=== PATIENT | female | born 1960 | race Caucasian/White ===

== ENCOUNTER 2021-05-25 15:57 | Emergency (ER) | payer SELFPAY ==
--- NOTE | 2021-05-25 16:31 | PHYS DOC ---
Adult General Chief Complaint Chief Complaint: CPR/FULL ARREST HPI HPI Patient is a 60-year-old female presenting via EMS for CODE BLUE. Patient is a victim of out of hospital arrest. She was apparently having sexual intercourse and doing other undisclosed activities with male partner when she apparently went to the bathroom and after 15 minutes was found on the ground foaming at the mouth. EMS was subsequently called and arrived to the house at 1515 hrs. Immediately when EMS arrived to scene, male individual fled and so no additional information was obtained. Patient was triaged as CODE BLUE after [id number] glucose was 222 and patient none responsive to Narcan and appropriate ACLS was started at 1523 hrs. Patient was found to be in asystole, an i-gel was inserted, Toi machine placed on chest for compressions, and left tibial IO inserted. Patient's rhythms were initially asystole, then PEA, and after several rounds x1 episode of ventricular tachycardia was identified and shocked with PEA ongoing up until ER arrival. Patient had received 5 doses of epinephrine IO prior to arrival. Review of Systems Review of Systems Unable to assess due to ongoing cardiac arrest on arrival Physical Exam Physical Exam Constitutional: Patient ill-appearing with ongoing cardiac resuscitation on arrival, age- appropriate HEENT: Head: Normocephalic and atraumatic. TMs clear, no hemotympanum Conjunctivae of right injected, EOM are normal. Pupils are equal, round, and nonreactive to light. Oropharynx with i-gel in appropriate position bagging easily No hematomas or lacerations or abrasions to face or scalp OP clear, no blood, no malocclusion, dentition intact Nares clear, no nasal septal hematoma Midface stable Neck: C-spine midline nontender, no step-offs Cardiovascular: PEA initial rhythm without pulse, organized cardiac rhythm per bedside ultrasound Pulmonary/Chest: Mechanical breath sounds, easily bagging via BVM, bilateral chest rise with rhonchi present to bilateral lungs globally, no spontaneous breaths Abdominal: Soft. Bowel sounds are normal. Pt exhibits no distension. There is no tenderness. Musculoskeletal: No bony tenderness to extremities, no deformities, full ROM extremities Chest wall stable Pelvis stable and non-tender No vertebral TTP and spine without stepoffs Left tibial IO in satisfactory position Neurological: No purposeful movements on arrival No spontaneous movements of extremities Fixed pupils bilaterally No gag or ocular reflex Downgoing toes bilaterally with stimulation Skin: Skin is warm and dry. No abrasions, no lacerations Psychiatric: Unable to fully assess Current Patient Data Lab Results Current Medications Medications (Trade) Dose Ordered Sig/Tu Route PRN Reason Start Time Stop Time Status Last Admin Dose Admin Amiodarone HCl (Cordarone) 300 mg STK-MED ONCE IVP 05/25/21 17:00 05/25/21 21:22 DC Calcium Chloride (Calcium Chloride) 1,000 mg STK-MED ONCE IV 05/25/21 17:00 05/25/21 21:22 DC Epinephrine HCl (EPINEPHrine SYRINGE) 5 mg STK-MED ONCE .ROUTE 05/25/21 17:00 05/25/21 21:22 DC Sodium Bicarbonate (Sodium Bicarb Adult 8.4% Syr) 50 meq STK-MED ONCE .ROUTE 05/25/21 17:00 05/25/21 21:22 DC EKG EKG [] Radiology/Procedures Radiology/Procedures [] Heart Score C/O Chest Pain: N/A Risk Factors: Risk Factors: DM, Current or recent (<one month) smoker, HTN, HLP, family history of CAD, obesity. Risk Scores: Risk Factors: DM, Current or recent (<one month) smoker, HTN, HLP, family history of CAD, obesity. Course & Med Decision Making Course & Med Decision Making Ongoing cardiac arrest at time of arrival Little is known about patient regarding past medical history. Witnessed arrest with witnessed fling seen immediately on EMS arrival It is unknown if patient was performing/engaging in illegal activity and bathroom or prior to being found on bathroom floor foaming at mouth Regardless, extensive efforts made in ER following appropriate ATLS protocol. PEA on arrival, had x2 episodes of V. tach that were nonresponsive to electric d efib Additional access obtained via right IO. Definitive airway via intubation performed without issues during resuscitation efforts. Aggressive resuscitation efforts were made. No family or next of kin available. After approximately 1 hour of total downtime and no obvious neurologic or other signs of life, decision made to withdraw care I performed comprehensive evaluation confirming no response to verbal and/or painful stimuli, no lung and/or cardiac sounds appreciated on 2 minutes of auscultation. No ocular reflex to physical stimulation or light. No cardiac activity when performing bedside ultrasound via parasternal and subxiphoid views. Patient pronounced and appropriate authorities notified. Please defer to charge nurse documentation regarding specifics of cardiac arrest and timing of pronouncement of . Critical Care Time This patient required critical care. Due to the fact that the patient required a significant amount of one on one physician - patient contact time, ordering and review of studies, arranging urgent treatment with development of a management plan, evaluation of patients response to treatment with frequent reassessments, and discussions with other providers this patient required 40 minutes of critical care time. Critical care time was indicated due to the inherent instability and/or potential for instability in this patient. The critical care time that is allocated to this patient is above and beyond any time spent on any other billable procedures performed on this patient. Dragon Disclaimer Dragon Disclaimer This electronic medical record was generated, in whole or in part, using a voice recognition dictation system. Ultrasound Progress Due to this patient's reported HPI, a focused bedside sonography for cardiac function was indicated Bedside ultrasonography was utilized to complete this procedure Cardiac evaluation involved both the parasternal and subxiphoid approaches to visualize the heart and pericardial sac. There was no evidence of gross wall motion movement, effusions or cardiac activity Intubation Progress The patient required endotracheal intubation due to need for definitive airway given ongoing cardiac arrest Consent was implied due to medical necessity/emergent need for advanced airway The patient was given no sedatives and/or paralytics Once patient was adequately sedated and paralyzed, a 3.0 glidoscope was used to directly visualize the cords Using this direct visualization, a 7.5 endotracheal tube was then passed easily through the cords The tube was inserted at 22 centimeters at the lip There is excellent color change on end-tidal CO2 monitor. Patient was easily and adequately ventilated. There was excellent breath sounds bilaterally with no breath sounds heard over the epigastrium. The tube was secured in standard fashion. The patient tolerated procedure well with no observed nor reported complications Post intubation chest x-ray demonstrates excellent endotracheal tube placement Departure Departure: Impression: Primary Impression: Cardiac arrest Disposition: 20 Condition: Referrals: PCP,NO (PCP) LILIBETH DYER DO May 25, 2021 16:31
[2021-05-25] MEDS ORDERED: AMIODARONE 150 MG/3 ML VIAL IVP ONE (17:00)
[2021-05-25] MEDS ORDERED: CALCIUM CHLORIDE 1,000 MG/10 ML VIAL IV ONE (17:00)
[2021-05-25] MEDS ORDERED: EPINEPHrine SYRINGE 1 MG/10 ML SYRINGE. ONE (17:00)
[2021-05-25] MEDS ORDERED: SODIUM BICARB ADULT 8.4% 50 MEQ/50 ML DISP.SYRIN. ONE (17:00)
[2021-05-25 17:09] LABS: BASO % 0 % (0-3); EOS # 0.1 x10^3/uL (0.0-0.7); EOS % 1 % (0-3); HEMATOCRIT 43.8 % (36.0-47.0); HEMOGLOBIN 13.5 g/dL (12.0-15.5); LYMPH # 6.1 x10^3/uL (1.0-4.8); LYMPH % 54 % (24-48); MEAN CORPUSCULAR HEMOGLOBIN 31 pg (25-35); MEAN CORPUSCULAR HGB CONC 31 g/dL (31-37); MEAN CORPUSCULAR VOLUME 100 fL (79-100); MONO # 0.6 x10^3/uL (0.0-1.1); MONO % 6 % (0-9); NEUT # 4.5 x10^3uL (1.8-7.7); NEUT % 40 % (31-73); PLATELET COUNT 186 x10^3/uL (140-400); RED BLOOD COUNT 4.38 x10^6/uL (3.50-5.40); RED CELL DISTRIBUTION WIDTH 14.7 % (11.5-14.5); WHITE BLOOD COUNT 11.4 x10^3/uL (4.0-11.0)
[2021-05-25 17:11] LABS: CALCIUM 9.2 mg/dL (8.5-10.1); CREATININE 1.8 mg/dL (0.6-1.0); GFR 28.8; POTASSIUM 5.4 mmol/L (3.5-5.1)
[2021-05-25 17:17] LABS: ALBUMIN 3.1 g/dL (3.4-5.0); TOTAL BILIRUBIN 0.2 mg/dL (0.2-1.0); TOTAL PROTEIN 6.1 g/dL (6.4-8.2)
[2021-05-25 19:55] LABS: % ATYL 2 % (0-0); % BANDS 5 % (0-9); % EOS 1 % (0-5); % LYMPHS 57 % (24-48); % METAS 1 % (0-0); % MONOS 6 % (0-10); % SEGS 28 % (35-66)
[2021-05-25 19:56] LABS: PLT ESTIMATE ADEQUATE (ADEQUATE)
== END 2021-05-25 18:24 ==
LOC: ER 15:57
DX: I46.9 Cardiac arrest, cause unspecified (principal)
CPT/HCPCS: 31500; 36415; 80053; 82947; 83605; 84484; 85007; 85025; 92950; 99291; J0171; J0282; 99285